=== PATIENT | male | born 1955 | race Caucasian/White ===

== ENCOUNTER 2021-11-05 13:37 | Outpatient (CLI) | payer MEDICARE, OTHER, SELFPAY ==
[2021-11-05 19:01] LABS: Chloride* 105 mmol/L (96-114); Potassium* 4.7 mmol/L (3.6-5.1); Sodium* 137 mmol/L (135-149)
[2021-11-05 19:04] LABS: Blood Urea Nitrogen* 27 mg/dL (7-30); Carbon Dioxide* 25 mmol/L (20-32); Estimated Glomerular Filt Rate 81.98
[2021-11-05 19:05] LABS: Calcium* 9.4 mg/dL (8.4-10.6); Glucose* 96 mg/dL (60-115)
[2021-11-05 22:26] LABS: Free T4 Free Thyroxine* 1.06 ng/dL (0.70-1.85)
== END 2021-11-05 13:38 | disposition home or self-care (01) ==
PROVIDERS: PCP Family Medicine; Visit Provider Family Medicine
DX: Z11.1 Encounter for screening for respiratory tuberculosis (principal); E27.1 Primary adrenocortical insufficiency; E03.9 Hypothyroidism, unspecified; L65.9 Nonscarring hair loss, unspecified; M85.80 Other specified disorders of bone density and structure, unspecified site
CPT/HCPCS: 80048; 84439; 84443; 86480

== ENCOUNTER 2022-03-05 12:36 | Outpatient (CLI) | payer MEDICARE, OTHER, SELFPAY ==
--- NOTE | 2022-03-05 13:00 | CRLHL7_ITS ---
For Patients: As a result of the Century Cures Act, medical imaging exams and procedure reports are released immediately into your electronic medical record. You may view this report before your referring provider. If you have questions, please contact your health care provider. DXA BONE MINERAL DENSITY STUDY Reason for exam: Current use of steroid medication. Current height (in): 69. Weight (lb): 183. Menopause age: Not applicable. Ethnicity: White. 1. Have you had a previous hip or vertebral fracture? No. 2. Have you had any fractures during your adult life which did not result from significant trauma (e.g., auto accident)? No. 3. Did either of your parents have a hip fracture? No. 4. Do you smoke? No. 5. Have you ever taken Glucocorticoids? Yes. 6. Do you have rheumatoid arthritis? No. 7. Do you have secondary osteoporosis? No. 8. Do you drink 3 or more alcoholic drinks per day? No. 9. Are you being treated for osteoporosis? Yes. 10. Have you ever taken any of the following medications: Actonel, Evista, Fosamax, Miacalcin, Reclast, Boniva, Forteo, HRT (i.e., estrogen/hormone therapy), Protelos, Prolia, Vitamin D, Calcium, other ??? please specify. ANSWER: Yes, Fosamax, vitamin D and calcium. 11. Do you have any of the following medical conditions: Anorexia or bulimia, asthma or emphysema, end stage renal disease, hyperparathyroidism, any seizure disorders, cancer, inflammatory bowel diseases, hysterectomy, other ??? please specify. ANSWER: Yes, hypothyroid, [place]???s disease. 12. What was your maximum height (inches)? 70. 13. Do you perform weight bearing exercise regularly? Yes. 14. Do you regularly consume dairy products? No. 15. Do you drink caffeinated beverages? Yes. TECHNIQUE: Bone mineral density study was performed using the [email or web address]. FINDINGS: The results of the study expressed as bone mineral density (BMD) are as follows: Lumbar spine L1 to L4: BMD: 0.905 g/cm2. T-score: -1.7. Z-score: -0.8 Neck Left: BMD: 0.768 g/cm2. T-score: -1.2. Z-score: -0.1 Right: BMD: 0.775 g/cm2. T-score: -1.1. Z-score: 0.0 Total Left: BMD: 0.903 g/cm2. T-score: -0.9. Z-score: -0.2 Right: BMD: 0.912 g/cm2. T-score: -0.8. Z-score: -0.2 IMPRESSION: Osteopenia. *Comparison exams done prior to 09/2019 were performed on different unit, [employer]. COMPARISON: Compared with scan of 01/03/2020, the bone mineral density has increased by 9.9 percent at the spine and increased by 5.6 percent at the hip. Cyril Schuler M.D. Diagnostic Radiologist [email or web address] LEONARDO/[email or web address] blankenship/Dictated by: Cyril Schuler MD @ 03/09/2022 11:57:00 AM (Electronically Signed)
== END 2022-03-05 12:37 | disposition home or self-care (01) ==
PROVIDERS: PCP Family Medicine; Visit Provider Family Medicine
DX: Z79.52 Long term (current) use of systemic steroids (principal); M85.89 Other specified disorders of bone density and structure, multiple sites
CPT/HCPCS: 77080

== ENCOUNTER 2022-10-10 12:57 | Emergency (ER) | payer MEDICARE, OTHER, SELFPAY ==
[2022-10-10] VITALS (25 sets, daily range): BP systolic 147–180; BP diastolic 83–104; PULSE 51–76; RESP 16; TEMP 36.8; O2SAT 98–100; BMI 23.6
--- NOTE | 2022-10-10 14:06 | CRLHL7_ITS ---
For Patients: As a result of the Cures Act, medical imaging exams and procedure reports are released immediately into your electronic medical record. You may view this report before your referring provider. If you have questions, please contact your health care provider. INDICATION: chest pain INDICATION: Chest pain. TECHNIQUE: Chest 2 views. COMPARISON: None FINDINGS: Cardiovascular and mediastinum: Heart size and vasculature are normal in caliber and appearance. Mediastinum is within normal limits. Lungs and pleural spaces: Lungs are clear. No sign of infiltrate or mass. No sign of pleural effusion. No pneumothorax. Bones and soft tissues: No significant findings. IMPRESSION: No acute airspace disease. Dictated by Nicholas Baker MD @ 10/10/2022 2:38:17 PM Dictated by: Nicholas Baker MD @ 10/10/2022 14:38:25 (Electronically Signed)
[2022-10-10] MEDS: ASPIRIN 81 MG TAB.CHEW 324 MG PO (14:15)
--- NOTE | 2022-10-10 14:34 | ED_ITS ---
HPI - Chest Pain General Date Seen: 10/10/22 Chief Complaint: Unspecified Complaint, Adult Stated Complaint: Diagnosed with ischemia, trouble sleeping, dizzy Time Seen by Provider: 10/10/22 13:00 Source: patient Mode of arrival: ambulatory Limitations: no limitations History of Present Illness HPI narrative: Patient is a 67-year-old gentleman who presents here with the 2-3 week period of increasing chest discomfort, he had a stress echo done, was diagnosed with ischemia, an appointment with Cardiology on October 23, he tells me has not been sleeping, he has been under increased stress because of this. He is using his nitroglycerin probably once per day. And is increasing. Said normally he could exercise, without getting chest discomfort this change in he got the stress echo, since then he has been having chest discomfort more often, it always seems to go way with nitroglycerin, but with less than less effort. He does not currently have chest pain here in the department. Last of nitroglycerin yesterday. Feels he is going to run out of his nitroglycerin, and he has been using it sparingly. He is also under the stress of having heart issues. And says he is trying to declot her is house, and has not been sleeping. Does have a history of smoking but stopped in 1981 after 32 years, family history of heart disease his father and grandfather in their late 50s from heart issues. Brother had a bypass done 5 years ago when he is in his late 60s. No past history hypertension but past history hyperlipidemia with elevated HDL no history of diabetes. Does have a past history of pulmonary emboli is on Eliquis for this, Denies any PND orthopnea, any leg swelling, he has had no shortness of breath, and the burning in his chest always goes away when he uses the nitroglycerin. Risk Factors Coronary artery disease risk factors: smoking history, hyperlipidemia and family history of CAD before age 50 Related Data Home Medications Medication Instructions Recorded Confirmed apixaban 5 mg tablet 5 mg PO BID 11/05/21 10/10/22 levothyroxine 150 mcg tablet 150 mcg PO QDAY 11/05/21 10/10/22 minocycline 50 mg capsule 50 - 100 mg PO DAILY 11/05/21 10/10/22 multivitamin (Daily Multi-Vitamin 1 tab PO QDAY 11/05/21 10/10/22 tablet) omega 7-klp-gzf-fish oil 100 cap PO 11/05/21 07/06/22 mg-160 mg-1,000 mg capsule (Fish Oil) prednisone 5 mg tablet 7.5 mg PO DAILY 11/05/21 10/10/22 baricitinib 4 mg tablet (Olumiant) 4 mg PO QDAY 07/06/22 10/10/22 nitroglycerin 0.4 mg sublingual mg sublingual DAILY 10/10/22 tablet Previous Rx's Medication Instructions Recorded alendronate 70 mg tablet 70 mg PO QWEEK #12 tabs 11/05/21 Allergies Allergy/AdvReac Type Severity Reaction Status Date / Time No Known Allergies Allergy Verified 10/10/22 13:44 Review of Systems Status of ROS Reports: 10 or more systems reviewed and unremarkable except as noted in History and below [facility] Medical History Sensation of plugged ear ?H93.8X9 - Other specified disorders of ear, unspecified ear (ICD-10) Surgical History S/P tube myringotomy ?Z96.22 - Myringotomy tube(s) status (ICD-10) Social History Smoking Status: Former smoker Do you use any of these nicotine containing products: None Second hand tobacco smoke exposure: No How often do you have a drink containing alcohol: never How often do you have six or more drinks on one occasion: Never AUDIT-C Alcohol total score: 0 Non-prescribed substance use: denies use service: No Exam Narrative Exam Narrative: Patient is seen in room 8, he is in no apparent distress, pupils are equal round reactive there is no scleral icterus redness is TMs are normal his oropharynx is normal, neck is supple full range of motion, JVP is flat, carotid upstrokes are equal bilaterally there is no lymphadenopathy and no meningismus, his chest is good air entry bilaterally with no wheezing crackles noted heart sounds no clicks murmurs or gallops his abdomen is soft there is no guarding, organomegaly. Moves all extremities independently and well, no swelling of his lower extremities. Neurologically intact both the distally and proximally, symmetrical bilaterally, cranial nerves 3-12 are normal. Const Vital Signs, click to edit/add: Vital Signs - 24 hr 10/10/22 13:40 10/10/22 13:46 10/10/22 14:00 Temperature 98.2 F Pulse Rate 67 76 Pulse Rate [Pulse Oximeter] 61 Respiratory Rate 16 Blood Pressure Blood Pressure [Left Upper Arm] 159/90 H Pulse Oximetry 99 99 98 Oxygen Delivery Method Room Air 10/10/22 14:03 10/10/22 14:04 10/10/22 14:33 Temperature Pulse Rate 68 67 56 L Pulse Rate [Pulse Oximeter] Respiratory Rate Blood Pressure 164/104 H Blood Pressure [Left Upper Arm] Pulse Oximetry 99 100 99 Oxygen Delivery Method 10/10/22 15:00 10/10/22 15:02 Temperature Pulse Rate 57 L 56 L Pulse Rate [Pulse Oximeter] Respiratory Rate Blood Pressure 150/90 H Blood Pressure [Left Upper Arm] Pulse Oximetry 98 99 Oxygen Delivery Method Documenting provider has reviewed patient's vital signs: yes Course Course Hospital Course: Patient remained pain-free here in the emergency department, we did give him aspirin, EKG shows no acute changes initial troponin negative, I spoke to cardiology at [facility] in the recommended hospitalization at [facility] with capability for angiography, unfortunately they are full, they directed me [facility], and patient was accepted by Dr. Kaiser at [facility] inpatient [facility]. Patient will go by ALS. I explained this to the patient Vital Signs Vital signs: Initial Vital Signs Temperature 98.2 F 10/10/22 13:40 Temperature Source Temporal Artery Scan 10/10/22 13:40 Pulse Rate 61 10/10/22 13:40 Pulse Rhythm Regular 10/10/22 13:40 Pulse Strength 3+ Normal 10/10/22 13:40 Respiratory Rate 16 10/10/22 13:40 Blood Pressure 159/90 H 10/10/22 13:40 Blood Pressure Mean 113 H 10/10/22 13:40 Blood Pressure Position Semi-Fowlers 10/10/22 13:40 Pulse Oximetry 99 10/10/22 13:40 Oxygen Delivery Method Room Air 10/10/22 13:40 Vital Signs Temperature 98.2 F 10/10/22 13:40 Pulse Rate 61 10/10/22 13:40 Respiratory Rate 16 10/10/22 13:40 Blood Pressure 159/90 H 10/10/22 13:40 Pulse Oximetry 99 10/10/22 13:40 Oxygen Delivery Method Room Air 10/10/22 13:40 Temperature 98.2 F 10/10/22 13:40 Pulse Rate 56 L 10/10/22 15:02 Respiratory Rate 16 10/10/22 13:40 Blood Pressure 150/90 H 10/10/22 15:02 Pulse Oximetry 99 10/10/22 15:02 Oxygen Delivery Method Room Air 10/10/22 13:40 MDM - Chest Pain MDM Narrative Medical decision making narrative: During the evaluation of this patient I considered multiple differential diagnosis is. The life-threatening differential diagnosis include coronary disease/AR, pulmonary embolism, pneumothorax, pneumonia, and aortic dissection. Other differential diagnosis included but were not limited to pericarditis, myocarditis, chest wall pain, GERD, esophageal rupture, rib fracture contusion, pleurisy, as well as other etiologies. Medical Records Data Attestation: I reviewed the patient's medical records. Lab Data Attestation: I reviewed the patient's lab results. Labs: Lab Results 10/10/22 10/10/22 Range/Units 14:13 14:20 WBC 8.16 (4.50-11.00) K/uL RBC 4.94 (4.30-5.90) m/uL Hgb 15.3 (13.5-17.5) gm/dL Hct 45.9 (37.0-53.0) % MCV 93 (80-100) fL MCH 31 (26-34) pg MCHC 33 (32-36) gm/dL RDW Coeff of Luis 12.2 (11.5-15.5) % Plt Count 266 (140-440) K/uL Neut % (Auto) 81.3 H (42.0-72.0) % Lymph % (Auto) 11.3 L (20-44) % [place] % (Auto) 6.6 (0.0-11.0) % Eos % (Auto) 0.1 (0.0-7.0) % Baso % (Auto) 0.2 (0.0-3.0) % Neut # (Auto) 6.60 (1.7-7.0) K/uL Lymph # (Auto) 0.90 (0.90-2.90) K/uL [place] # (Auto) 0.50 (0.00-0.90) K/UL Eos # (Auto) 0.01 (0.00-0.50) K/uL Baso # (Auto) 0.02 (0.00-0.30) K/uL INR 1.05 (0.91-1.10) APTT 25 (23-33) Seconds D-Dimer Quant (PE/DVT) 0.60 H (0.00-0.50) ug/ml Sodium 133 L (135-149) mmol/L Potassium 4.4 (3.6-5.1) mmol/L Chloride 103 (96-114) mmol/L Carbon Dioxide 23 (20-32) mmol/L BUN 27 (7-30) mg/dL Creatinine 1.0 (0.5-1.5) mg/dL Estimated Creat Clear 69.72 Estimated GFR 81 ml/min Glucose 106 (60-115) mg/dL Calcium 9.3 (8.4-10.6) mg/dL Total Bilirubin 0.5 (0.1-1.5) mg/dL Direct Bilirubin 0.0 (0.0-0.5) mg/dL AST 35 (12-35) U/L ALT 28 (4-50) U/L Alkaline Phosphatase 70 (40-150) U/L C-Reactive Protein < 0.5 L (0.5-1.0) mg/dL NT-Pro-B Natriuret Pep 1030 pg/mL Total Protein 7.6 (6.0-8.3) g/dL Albumin 4.5 (3.3-5.0) g/dL SARS-CoV-2 (PCR) Negative SARS-CoV-2 (Negative) Influenza Type A (PCR) Negative PCR FLU A (Negative) Influenza Type B (PCR) Negative PCR FLU B (Negative) RSV (PCR) Negative PCR RSV (Negative) POC Troponin I 0.00 L (0.01-0.04) ng/ml Imaging Data Chest x-ray: Attestation: I have reviewed the pertinent imaging results. My impression: Negative chest X Radiologist's impression: Patient: [facility] Facility: [facility] Site . Site : 1955 Study: XRay Chest 2 views-10/10/2022 2:31:06 PM Ordering Physician: Cris Gutierrez Final Report: INDICATION: chest pain INDICATION: Chest pain. TECHNIQUE: Chest 2 views. COMPARISON: None FINDINGS: Cardiovascular and mediastinum: Heart size and vasculature are normal in caliber and appearance. Mediastinum is within normal limits. Lungs and pleural spaces: Lungs are clear. No sign of infiltrate or mass. No sign of pleural effusion. No pneumothorax. Bones and soft tissues: No significant findings. IMPRESSION: No acute airspace disease. Dictated by Nicholas Baker MD @ 10/10/2022 2:38:17 PM Dictated by: Nicholas Baker MD @ 10/10/2022 14:38:25 (Electronic Signature) ECG Data Attestation: I personally reviewed and interpreted this ECG as follows: ECG interpretation date: 10/10/22 Interpretation: EKG shows normal sinus rhythm, no acute ST wave changes, regular rate is 60 Discharge Plan Discharge Clinical Impression: [place]'s disease, Angina pectoris, unstable, Factor 5 Leiden mutation, heterozygous Patient Disposition: Xfer Other Discharge Location: [facility] Condition: Stable Prescriptions: No Action prednisone 5 mg tablet 7.5 mg PO DAILY multivitamin [Daily Multi-Vitamin] Tablet 1 tab PO QDAY minocycline 50 mg capsule 50 - 100 mg PO DAILY apixaban 5 mg tablet 5 mg PO BID levothyroxine 150 mcg tablet 150 mcg PO QDAY Fish Oil 100-160-1,000 mg capsule PO alendronate 70 mg tablet 70 mg PO QWEEK Qty: 12 4RF Olumiant 4 mg tablet 4 mg PO QDAY nitroglycerin 0.4 mg tablet, sublingual sublingual DAILY Follow Up/Referrals: Provider,Not a Local [Primary Care Provider] - Stand Alone Forms: [employer] Info Instructions
[2022-10-10 14:37] LABS: Basophils Absolute Auto 0.02 K/uL (0.00-0.30); Basophils Percent Auto 0.2 % (0.0-3.0); Eosinophils Absolute Auto 0.01 K/uL (0.00-0.50); Eosinophils Percent Auto 0.1 % (0.0-7.0); Hematocrit 45.9 % (37.0-53.0); Hemoglobin* 15.3 gm/dL (13.5-17.5); Immature Granulocytes Abs Auto 0.04 K/uL (0.00-0.30); Immature Granulocytes Pct Auto 0.5 %; Lymphocytes Percent Auto 11.3 % (20-44); Mean Corpuscular HGB Conc 33 gm/dL (32-36); Mean Corpuscular Hemoglobin 31 pg (26-34); Mean Corpuscular Volume 93 fL (80-100); Monocytes Percent Auto 6.6 % (0.0-11.0); Neutrophils Percent Auto 81.3 % (42.0-72.0); Platelet Count* 266 K/uL (140-440); RDW Coefficient of Variation % 12.2 % (11.5-15.5); Red Blood Count 4.94 m/uL (4.30-5.90); White Blood Count* 8.16 K/uL (4.50-11.00)
[2022-10-10 14:49] LABS: Chloride* 103 mmol/L (96-114)
[2022-10-10 14:50] LABS: Albumin* 4.5 g/dL (3.3-5.0); Potassium* 4.4 mmol/L (3.6-5.1); Sodium* 133 mmol/L (135-149)
[2022-10-10 14:52] LABS: Est. Creatinine Clearance* 69.72; Estimated Glomerular Filt Rate 81 ml/min
[2022-10-10 14:53] LABS: Alanine Aminotransferase* 28 U/L (4-50); Alkaline Phosphatase* 70 U/L (40-150); Aspartate Amino Transferase* 35 U/L (12-35); Bilirubin Total* 0.5 mg/dL (0.1-1.5); Blood Urea Nitrogen* 27 mg/dL (7-30); Calcium* 9.3 mg/dL (8.4-10.6); Carbon Dioxide* 23 mmol/L (20-32); Glucose* 106 mg/dL (60-115); Total Protein* 7.6 g/dL (6.0-8.3)
--- NOTE | 2022-10-10 14:55 | ED.NURSE ---
Pt up and ambulated to bathroom with standby assistance from abstract searcher. Pt denied SOB, dizziness, or weakness. Pt steady on his feet during ambulation.
[2022-10-10 15:02] LABS: C Reactive Protein* < 0.5 mg/dL (0.5-1.0); NT Pro B Type NatriureticPept* 1030 pg/mL
[2022-10-10 15:03] LABS: Slide Review Reflex No
[2022-10-10 15:12] LABS: Partial Thromboplastin Time* 25 Seconds (23-33)
[2022-10-10 15:17] LABS: Prothrombin Time 14.3 Seconds
[2022-10-10 15:18] LABS: INR 1.05 (0.91-1.10)
[2022-10-10 15:18] LABS: PCR FLU A Negative PCR FLU A (Negative); PCR FLU B Negative PCR FLU B (Negative); PCR RSV Negative PCR RSV (Negative)
[2022-10-10 15:22] LABS: SARS PCR* Negative SARS-CoV-2 (Negative)
--- NOTE | 2022-10-10 16:30 | ED.NURSE ---
Per Dr. Lynch, pt will be transferring to [facility]. They will call with room number and for nurse to nurse report when bed is available. Pt aware.
--- NOTE | 2022-10-10 17:16 | ED.NURSE ---
Report called to [facility], RANJAN Mcgee. All questions answered. Pt will go to room 3344 upon arrival. EMS planning to arrive for transport around 1830. This lead technical writer to call update to [facility] once pt has left on ambulance.
== END 2022-10-10 19:00 | disposition other institution (70) ==
PROVIDERS: Emergency Provider Family Medicine
DX: E27.1 Primary adrenocortical insufficiency (principal); I20.9 Angina pectoris, unspecified; D68.51 Activated protein C resistance
CPT/HCPCS: 36415; 71046; 80048; 80076; 83880; 84484; 85025; 85379; 85610; 85730; 86140; 87631; 93005; 99284; 99285; A9270

== ENCOUNTER 2022-10-10 19:01 | Outpatient (CLI) | payer MEDICARE, OTHER, SELFPAY | END 2022-10-10 19:02 | disposition home or self-care (01) | LOC: AMB 10-14 12:26 | PROVIDERS: Visit Provider Emergency Medicine Emergency Medical Services | DX: I20.0 Unstable angina (principal) | CPT/HCPCS: A0425; A0427; A0428 ==